=== PATIENT | female | born 2000 | race Caucasian/White ===

== ENCOUNTER 2023-07-25 09:12 | Outpatient (CLI) | payer BC, SELFPAY | END 2023-07-25 09:13 | disposition home or self-care (01) | PROVIDERS: Visit Provider Nurse Practitioner | DX: R42 Dizziness and giddiness (principal); R11.0 Nausea; R10.13 Epigastric pain; A08.4 Viral intestinal infection, unspecified; R51.9 Headache, unspecified | CPT/HCPCS: 82947; 87086 ==